=== PATIENT | male | born 1985 | race Two or more races ===

== ENCOUNTER 2025-01-31 17:14 | Emergency (ER) | payer OTHER ==
[~2025-01-31] VITALS: Ht 182.9 cm; Wt 80.0 kg
[2025-01-31 17:23] VITALS: TEMP 98.3; O2SAT 99
[2025-01-31 20:30] VITALS: BP 129/78; PULSE 78; RESP 18; O2SAT 99
[2025-01-31] MEDS ORDERED: IBUP-1523 MT (20:37)
[2025-01-31] MEDS ORDERED: TOPUD MT (20:37)
== END 2025-01-31 20:52 ==
LOC: ER 17:14
DX: S80.211A Abrasion, right knee, initial encounter (principal); S80.212A Abrasion, left knee, initial encounter; S80.00XA Contusion of unspecified knee, initial encounter; S09.8XXA Other specified injuries of head, initial encounter; E11.9 Type 2 diabetes mellitus without complications; I10 Essential (primary) hypertension; Y04.0XXA Assault by unarmed brawl or fight, initial encounter; Y93.89 Activity, other specified; Y92.89 Other specified places as the place of occurrence of the external cause; Y99.8 Other external cause status
CPT/HCPCS: 71045; 73562; 82962; 99284